=== PATIENT | male | born 1940 | race Hispanic/Latino ===

== ENCOUNTER 2025-08-18 20:45 | Inpatient (IN) | payer OTHER ==
[2025-08-18 21:45] LABS: Absolute Lymphocytes (CBC) 1.0 K/uL (0.7-4.9); Hematocrit 39.1 % (39.6-49.0); Hemoglobin 12.9 g/dL (13.6-17.9); MCH 30.6 pg (27.0-35.0); MCHC 32.9 g/dL (32.0-36.0); MCV 93.1 fL (80-100); MPV 9.5 fL (7.6-11.3); Nucleated RBC Absolute Count 0.0 (0-0); Nucleated Red Blood Cells % 0.1 % (0-0); RBC Red Blood Cell Count 4.20 M/uL (4.33-5.43); White Blood Count 7.10 thou/uL (4.3-10.9)
[2025-08-18 21:54] LABS: PT Prothrombin Time 14.9 SECONDS (10-13.0); Protime INR 1.33
[2025-08-18 22:07] LABS: ALT/SGPT 59.0 U/L (16-61); AST/SGOT 39.0 U/L (15-37); Albumin 3.3 g/dL (3.4-5.0); Albumin/Globulin Ratio 0.8 (1.1-1.8); Alkaline Phosphatase 87.0 U/L (45-117); Anion Gap 8.1 mEq/L (5.0-15.0); BUN Blood Urea Nitrogen 23.0 mg/dL (7-18); Bilirubin Indirect, Calculated 0.7 mg/dL (0.2-0.8); Globulin 4.0 g/dL (2.3-3.5); Glucose Level 108.0 mg/dL (74-106); Magnesium 2.1 mg/dL (1.6-2.4); NT PRO-BNP 14918.0 pg/mL (<450); Potassium 4.1 mEq/L (3.5-5.1)
[2025-08-18 22:09] LABS: White Blood Cell Scan OK (OK)
[2025-08-18 22:25] LABS: Anisocytosis 1+; Blood Morphology Comment NOTED (NOT SEEN); Macrocytosis SLIGHT; Microcytosis SLIGHT; Ovalocytes SLIGHT
[2025-08-18 22:26] LABS: Troponin High Sensitivity 110.9 pg/mL (<58.9)
--- NOTE | 2025-08-18 22:35 | RAD REPORT ---
EXAM: Chest Single View HISTORY: 85 years Male edema COMPARISON: No prior exams FINDINGS: LUNGS/PLEURA: Small bilateral pleural effusions and probable underlying atelectasis. CARDIAC/MEDIASTINUM: Moderate cardiomegaly. UPPER ABDOMEN: No significant abnormality. BONES: No acute abnormality. LINES/TUBES/OTHER: N/A IMPRESSION: Cardiomegaly and small bilateral pleural effusions probably secondary to mild congestive heart failur e/fluid overload.
[2025-08-18] MEDS ORDERED: ASPIRIN 81 MG CHEWABLE TABLET ONE (23:07)
[2025-08-18] MEDS ORDERED: ENOXAPARIN 80 MG/0.8 ML SQ ONE (23:08)
[2025-08-18] MEDS ORDERED: FUROSEMIDE 40 MG/4 ML VIAL ONE (23:08)
--- NOTE | 2025-08-18 23:12 | ER ---
Nurse's Notes [facility] Name: Zaid Parmar Age: 85 yrs Sex: Male : 1940 Arrival Date: 08/18/2025 Time: 20:45 Bed 2 Private MD: Diagnosis: Subsequent non-ST elevation (NSTEMI) myocardial infarction;Unspecified combined systolic (congestive) and diastolic (congestive) heart failure Presentation: 08/18 20:53 Chief complaint: Patient's son or daughter states: PT WAS IN [place] FOR 1.5 MONTHS AND dd2 RETURNED TODAY WITH SOB AND SWELLING TO BOTH FEET. PT'S SON REPORTS THAT THESE SYMPTOMS HAVE BEEN PRESENT PRIOR TO VISIT IN [place] AND WAS SEEN BY PHYSICIAN THERE AND WAS TOLD HE HAD A BLOCKAGE AND NEED SURGERY. PT'S SON BROUGHT HIM HOME DUE TO HIS INSURANCE BEING HERE. Coronavirus screen: At this time, the client does not indicate any symptoms associated with coronavirus-19. Ebola Screen: No symptoms or risks identified at this time. Initial Sepsis Screen: Does the patient meet any 2 criteria? No. Patient's initial sepsis screen is negative. Does the patient have a suspected source of infection? No. Patient's initial sepsis screen is negative. Risk Assessment: Do you want to hurt yourself or someone else? Patient reports no desire to harm self or others. Onset of symptoms is unknown. 20:53 Method Of Arrival: Wheelchair dd2 20:53 Acuity: MADDISON 3 dd2 Triage Assessment: 20:59 General: Appears in no apparent distress. uncomfortable, Behavior is calm, cooperative, dd2 appropriate for age. Pain: Denies pain. Respiratory: Reports shortness of breath at rest on exertion. Musculoskeletal: Swelling present in right foot, left foot, right leg and left leg. Historical: - Allergies: 20:59 No Known Allergies; dd2 - PMHx: 20:59 None; dd2 - PSHx: 20:59 HERNIA REPAIR; dd2 - Immunization history:: Adult Immunizations up to date. - Infectious Disease History:: Denies. - Social history:: Smoking status: Patient/guardian denies using tobacco, but has a distant history of tobacco abuse. Screenin:39 [facility] ED Fall Risk Assessment (Adult) History of falling in the last 3 months, lg3 including since admission No falls in past 3 months (0 pts) Confusion or Disorientation No (0 pts) Intoxicated or Sedated No (0 pts) Impaired Gait No (0 pts) Mobility Assist Device Used No (0 pt) Altered Elimination No (0 pt) Score/Fall Risk Level 0 - 2 = Low Risk Oriented to surroundings, Maintained a safe environment, Educated pt \T\ family on fall prevention, incl call for assistance when getting out of bed, Assessed \T\ reinforced patient's understanding of fall precautions. Abuse screen: Denies threats or abuse. Denies injuries from another. Nutritional screening: No deficits noted. Tuberculosis screening: No symptoms or risk factors identified. Assessment: 21:39 General: Appears in no apparent distress. comfortable, Behavior is calm, cooperative. lg3 Pain: Denies pain. Neuro: No deficits noted. Sherwood Agitation-Sedation Scale (RASS): 0 - Alert and Calm Level of Consciousness is awake, alert, obeys commands, Oriented to person, place, time, situation. Cardiovascular: No deficits noted. Reports shortness of breath, Denies chest pain, Capillary refill < 3 seconds Clubbing of nail beds is absent JVD is absent Patient's skin is warm and dry. Respiratory: No deficits noted. Reports shortness of breath at rest Airway is patent Respiratory effort is even, unlabored, Respiratory pattern is regular, symmetrical. GI: No deficits noted. No signs and/or symptoms were reported involving the gastrointestinal system. Abdomen is round non-distended. : No signs and/or symptoms were reported regarding the genitourinary system. EENT: No deficits noted. No signs and/or symptoms were reported regarding the EENT system. Derm: No deficits noted. No signs and/or symptoms reported regarding the dermatologic system. Skin is intact, is healthy with good turgor, Skin is dry, Skin is normal, Skin temperature is warm. Musculoskeletal: Circulation, motion, and sensation intact. Range of motion: intact in all extremities, Swelling present in right leg and left leg. 23:09 Reassessment: Patient appears in no apparent distress at this time. No changes from lg3 previously documented assessment. Patient and/or family updated on plan of care and expected duration. Pain level reassessed. Patient is alert, oriented x 3, equal unlabored respirations, skin warm/dry/pink. 08/19 00:48 Reassessment: Patient appears in no apparent distress at this time. No changes from lg3 previously documented assessment. Patient and/or family updated on plan of care and expected duration. Pain level reassessed. Patient is alert, oriented x 3, equal unlabored respirations, skin warm/dry/pink. Vital Signs: 08/18 20:53 BP 145 / 76; Pulse 69; Resp 19; Temp 98.2; Pulse Ox 98% on R/A; Pain 0/10; dd2 20:53 Weight 69 kg; dd2 23:09 BP 138 / 67; Pulse 58; Resp 20 S; Pulse Ox 97% on R/A; lg3 08/19 00:47 BP 141 / 72; Pulse 70; Resp 20 S; Pulse Ox 97% on R/A; lg3 08/18 20:53 Pain Scale: Adult dd2 ED Course: 08/18 20:52 Patient arrived in ED. dd2 20:59 Triage completed. dd2 20:59 Kenji Frank [facility]-C [facility]. cp 20:59 Bobby Molina DO is Attending Physician. cp 20:59 Arm band placed on right wrist. dd2 21:39 Leyla Irwin, PARVIZ is Primary Nurse. lg3 21:39 Patient has correct armband on for positive identification. Placed in gown. Bed in low lg3 position. Call light in reach. Side rails up X 1. Client placed on continuous cardiac and pulse oximetry monitoring. NIBP monitoring applied. library monitor on. Door closed. Noise minimized. Warm blanket given. Pillow given. Family accompanied patient. 21:39 Initial lab(s) drawn, by me, sent to lab. EKG done, by ED staff, reviewed by Kenji Frank lgSimone BO. Inserted saline lock: 20 gauge in right antecubital area, using aseptic technique. Blood collected. Flushed with 10 mL NS. 22:29 XRAY Chest (1 view) In Process Unspecified. EDMS 23:10 Devan Argueta MD is Hospitalizing Provider. cp 23:34 CT Chest For PE Angio In Process Unspecified. EDMS 08/19 01:44 No provider procedures requiring assistance completed. ha1 01:46 Provided Education on: admission. ha1 02:34 Patient admitted, IV remains in place. cp4 Administered Medications: 08/18 23:15 Drug: Furosemide IVP 40 mg IVP once; give over 2 minutes Route: IVP; Site: right cp4 antecubital; 08/19 00:50 Follow up: Response: No adverse reaction 3 08/18 23:15 Drug: Aspirin PO Chewable Tablet 324 mg PO once; 81 mg tablets x 4 Route: PO; 4 08/19 00:49 Follow up: Response: No adverse reaction lg3 08/18 23:15 Drug: Enoxaparin Sub-Q 1 mg/kg Sub-Q once Route: Sub-Q; Site: abdomen; 4 08/19 00:49 Follow up: Response: No adverse reaction lg3 Medication: 08/18 21:39 VIS not applicable for this client. lg3 Outcome: 23:11 Decision to Hospitalize by Provider. 08/19 02:33 Admitted to Med/surg accompanied by tech, room 425, with chart, cp4 Condition: stable Instructed on the need for admit, 02:34 Patient left the ED. cp4 Signatures: Dispatcher [employer] EDMS Kenji Frank, PA-C PA-C Leyla Cartwright RN RN lg3 Whitney Olivera RN RN ha1 Kerry Haskins cp4 AZRA MARLEY RN RN dd2
--- NOTE | 2025-08-18 23:12 | EDPHYS ---
Physician Documentation [facility] Name: Zaid Parmar Age: 85 yrs Sex: Male : 1940 Arrival Date: 08/18/2025 Time: 20:45 Bed 2 Private MD: ED Physician Bobby Molina HPI: 08/18 21:10 This 85 yrs old Male presents to ER via Wheelchair with complaints of Leg cp Swelling. 21:10 The patient has shortness of breath at rest. Onset: The symptoms/episode began/occurred cp 1.5 month(s) ago. 21:10 Duration: The symptoms are continuous, and are steadily getting worse. cp 21:10 Associated signs and symptoms: Pertinent negatives: chest pain, diaphoresis, fever, cp vomiting. Severity of symptoms: in the emergency department the symptoms are unchanged despite home interventions. Son reports patient was seen by physician while in [place] and informed he had blocked cardiac arteries. Historical: - Allergies: 20:59 No Known Allergies; dd2 - PMHx: 20:59 None; dd2 - PSHx: 20:59 HERNIA REPAIR; dd2 - Immunization history:: Adult Immunizations up to date. - Infectious Disease History:: Denies. - Social history:: Smoking status: Patient/guardian denies using tobacco, but has a distant history of tobacco abuse. ROS: 21:15 Constitutional: Negative for body aches, chills, fever, poor PO intake, cp 21:15 Eyes: Negative for injury, pain, redness, and discharge, cp 21:15 ENT: Negative for drainage from ear(s), ear pain, sore throat, difficulty swallowing, difficulty handling secretions, 21:15 Cardiovascular: Positive for edema, Negative for chest pain, 21:15 Respiratory: Positive for shortness of breath, on exertion. Negative for cough, wheezing, 21:15 Abdomen/GI: Negative for abdominal pain, vomiting, diarrhea, constipation, black/tarry stool, rectal bleeding, 21:15 Neuro: Negative for altered mental status, headache, syncope, near syncope, weakness, 21:15 All other systems are negative, Exam: 21:15 Head/Face: Normocephalic, atraumatic. cp 21:15 Constitutional: The patient appears in no acute distress, alert, awake, non-toxic, well developed, well nourished, 21:15 Eyes: Periorbital structures: appear normal, Conjunctiva: normal, no exudate, no injection, Sclera: no appreciated abnormality, Lids and lashes: appear normal, bilaterally, 21:15 ENT: External ear(s): are unremarkable, Nose: is normal, Mouth: Lips: moist, Oral mucosa: moist, Posterior pharynx: Airway: no evidence of obstruction, patent, 21:15 Neck: ROM/movement: is normal, is supple, without pain, no range of motions limitations, no nuchal rigidity, 21:15 Chest/axilla: Inspection: normal, Palpation: is normal, no crepitus, no tenderness, 21:15 Cardiovascular: Rate: normal, Rhythm: regular, Edema: ankle edema, that is moderate, JVD: is not appreciated, 21:15 Respiratory: the patient does not display signs of respiratory distress, Respirations: shallow respirations, that is mild, Breath sounds: decreased breath sounds, that are mild, throughout, stridor, is not appreciated, wheezing: is not appreciated, 21:15 Abdomen/GI: Inspection: abdomen appears normal, Palpation: abdomen is soft and non-tender, in all quadrants, 21:15 Back: pain, is absent, 21:15 Skin: cellulitis, is not appreciated, no rash present. 21:15 Neuro: Orientation: to person, place \T\ time. Mentation: is normal, Motor: moves all fours, strength is normal, Sensation: is normal, 08/19 03:28 ECG was reviewed by the Attending Physician. cp Vital Signs: 08/18 20:53 BP 145 / 76; Pulse 69; Resp 19; Temp 98.2; Pulse Ox 98% on R/A; Pain 0/10; dd2 20:53 Weight 69 kg; dd2 23:09 BP 138 / 67; Pulse 58; Resp 20 S; Pulse Ox 97% on R/A; lg3 08/19 00:47 BP 141 / 72; Pulse 70; Resp 20 S; Pulse Ox 97% on R/A; lg3 08/18 20:53 Pain Scale: Adult dd2 MDM: 08/18 21:00 Medical Screening Exam initiated cp 22:00 Differential diagnosis: CHF exacerbation, Chronic Obstructive Pulmonary Disease cp Myocardial Infarction pneumonia, pulmonary edema, Pulmonary Embolism Unstable Angina. 23:15 Data reviewed: vital signs, nurses notes, lab test result(s), EKG, radiologic studies, cp plain films, and as a result, I will admit patient. 23:15 Management of patient was discussed with the following: Electric Repair Supervisor: DR Hernandes, cp cardiology, will consult and patient admitted to service of hospitalist, DR Argueta, after discussion. Counseling: I had a detailed discussion with the patient and/or guardian regarding the historical points, exam findings, and any diagnostic results supporting the discharge/admit diagnosis, the presence of at least one elevated blood pressure reading (>120/80) during this emergency department visit, lab results, radiology results, the need for further work-up and treatment in the hospital. Response to treatment: the patient's symptoms have mildly improved after treatment. 08/18 21:30 Order name: Basic Metabolic Panel; Complete Time: 22:50 08/18 21:30 Order name: CBC with Diff; Complete Time: 22:50 08/18 21:30 Order name: LFT's; Complete Time: 22:50 08/18 21:30 Order name: Magnesium; Complete Time: 22:50 08/18 21:30 Order name: NT PRO-BNP; Complete Time: 22:50 08/18 22:50 Interpretation: Abnormal: NT PRO-BNP [id number]. 08/18 21:30 Order name: PT-INR; Complete Time: 22:50 08/18 21:30 Order name: Troponin HS; Complete Time: 22:50 08/18 21:49 Order name: CBC Smear Scan; Complete Time: 22:50 EDPA 08/19 01:30 Order name: CBC with Automated Diff [facility] 08/19 01:30 Order name: CBC with Automated Diff [facility] 08/19 01:30 Order name: Comprehensive Metabolic Panel [facility] 08/19 01:30 Order name: Comprehensive Metabolic Panel [facility] 08/19 01:30 Order name: Troponin High Sensitivity [facility] 08/19 01:30 Order name: Troponin High Sensitivity [facility] 08/19 01:30 Order name: Troponin High Sensitivity [facility] 08/19 01:30 Order name: Troponin High Sensitivity [facility] 08/18 21:30 Order name: XRAY Chest (1 view); Complete Time: 22:50 08/18 23:01 Interpretation: Report review. 08/18 23:02 Order name: CT Chest For PE Angio 08/18 21:30 Order name: EKG; Complete Time: 21:31 cp 08/18 21:30 Order name: Cardiac monitoring; Complete Time: 21:43 cp 08/18 21:30 Order name: EKG - Nurse/Tech; Complete Time: 21:43 cp 08/18 21:30 Order name: IV Saline Lock; Complete Time: 21:43 cp 08/18 21:30 Order name: Labs collected and sent; Complete Time: 21:44 cp 08/18 21:30 Order name: O2 Per Protocol; Complete Time: :44 cp 08/18 21:30 Order name: O2 Sat Monitoring; Complete Time: :44 cp EC/20 03:28 Rate is 64 beats/min. Rhythm is regular. QRS interval is prolonged at 107 msec. QT cp interval is normal. T waves are Inverted in lead I. Interpreted by me. Reviewed by me. Administered Medications: 08/18 23:15 Drug: Furosemide IVP 40 mg IVP once; give over 2 minutes Route: IVP; Site: right cp4 antecubital; 08/19 00:50 Follow up: Response: No adverse reaction lg3 08/18 23:15 Drug: Aspirin PO Chewable Tablet 324 mg PO once; 81 mg tablets x 4 Route: PO; [facility] 08/19 00:49 Follow up: Response: No adverse reaction lg3 08/18 23:15 Drug: Enoxaparin Sub-Q 1 mg/kg Sub-Q once Route: Sub-Q; Site: abdomen; 4 08/19 00:49 Follow up: Response: No adverse reaction lg3 Disposition: 07:41 Co-signature as Attending Physician, Bobby Molina DO I agree with the assessment and tt7 plan of care. Disposition Summary: 08/18/25 23:11 Hospitalization Ordered Notes: Hospitalization Status: Inpatient Admission cp Provider: Devan Argueta cp Location: Telemetry/MedSur (Inpatient) cp Condition: Stable cp Problem: new cp Symptoms: have improved cp Bed/Room Type: Standard cp Room Assignment: 425(08/19/25 01:31) kl Diagnosis - Subsequent non-ST elevation (NSTEMI) myocardial infarction cp - Unspecified combined systolic (congestive) and diastolic (congestive) heart failure cp Forms: - Medication Reconciliation Form cp - SBAR form cp - Leadership Thank You Letter cp Signatures: Dispatcher [employer] Mary Buck RN RN kl Kenji Frank, PA-C Leyla Huffman cp, RN RN kel3 Kerry Haskins cp4 AZRA MARLEY RN RN dd2 Bobby Molina, DO [place] tt7 Corrections: (The following items were deleted from the chart) 01:31 08/18 23:11 brenton hassan
--- NOTE | 2025-08-19 01:00 | RAD REPORT ---
EXAM: CT Angiography Chest With Intravenous Contrast CLINICAL HISTORY: The patient is 85 years old and is Male; SOB TECHNIQUE: Axial computed tomographic angiography images of the chest with intravenous contrast. Sagittal an d coronal reformatted images were created and reviewed. This CT exam was performed using one or more of the following dose reduction techniques: automated exposure control, adjustment of the mA a nd/or kV according to patient size, and/or use of iterative reconstruction technique. MIP reconstructed images were created and reviewed. COMPARISON: No relevant prior studies available. FINDINGS: PULMONARY ARTERIES: There are no obvious filling defects identified within the pulmonary arteries to suggest pulmonary embolism. AORTA: No acute findings. No thoracic aortic aneurysm. LUNGS AND PLEURAL SPACES: Moderate bilateral pleural effusions are present with associated atelec tasis. No mass. No pneumothorax. HEART: The heart is enlarged. A trace pericardial effusion is present. No evidence of RV dysfun ction. BONES/JOINTS: No acute fracture. No dislocation. SOFT TISSUES: Unremarkable. LYMPH NODES: Unremarkable. No enlarged lymph nodes. IMPRESSION: 1. No evidence of pulmonary embolism. 2. Moderate pleural effusions with bibasilar atelectasis. Electronically signed by: Ifeoma Saravia MD 08/19/2025 12:55 AM CDT Due to temporary technical issues with the [employer] [employer] reporting system, reports are being airam d by the in-house radiologist without review as a courtesy to ensure prompt reporting the interpreting radiologist is fully responsible for the content of the report. Transcribed Date/Time: 08/19/2025 12:59 AM
--- NOTE | 2025-08-19 01:24 | P.HP ---
Certification for Inpatient Patient admitted to: Inpatient With expected LOS: >2 Midnights Practitioner: I am a practitioner with admitting privileges, knowledge of patient current condition, hospital course, and medical plan of care. Services: Services provided to patient in accordance with Admission requirements found in Title 42 Section 412.3 of the Code of Federal Regulations Patient History Date of Service: 08/19/25 Reason for admission: CP/SOB History of Present Illness: 85-year-old male with no significant past medical history was brought to ER with chest discomfort and shortness of breath associated with swelling of both lower extremity which started a month ago and has been progressively getting worse and was brought to ER. Patient is a poor historian hence most of the history is obtained from the chart review and also talking to the ER physician. Denies any chest pain at the time of interview. Patient was in [place] for last 2 months and just returned today. He was been having shortness of breath and bilateral pedal edema and was seen by Dr mcintosh and was told that the patient had a blockage and needs surgery. So he returned to [facility]. No fever or chills. No nausea vomiting or diarrhea. Patient was assessed in the ER was admitted for further management of CHF and chest pain to rule out ACS Allergies No Known Allergies Allergy (Unverified 08/19/25 00:45) Home medications list reviewed: Yes - Past Medical/Surgical History Past Medical History: Reviewed- Non-Contributory Past Surgical History: Reviewed- Non-Contributory - Family History Family History: Reviewed- Non-Contributory - Social History Smoking Status: Never smoker Review of Systems 10-point ROS is otherwise unremarkable Physical Examination - Vital Signs Temperature: 98.2 F Blood Pressure: 146/72 Pulse: 78 Respirations: 18 Pulse Ox (%): 94 - Physical Exam General: Alert, Oriented x3, Mild distress HEENT: Atraumatic, Normocephalic Neck: Supple Respiratory: Clear to auscultation bilaterally, Normal air movement Cardiovascular: Regular rate/rhythm, Normal S1 S2, Edema Capillary refill: <2 Seconds Gastrointestinal: Soft and benign, W/out hepatosplenomegaly Musculoskeletal: No clubbing, Swelling Integumentary: No rashes Neurological: Other (Alert awake nonfocal) Lymphatics: No axilla or inguinal lymphadenopathy - Studies Laboratory Data (last 24 hrs) 08/18/25 08/18/25 08/18/25 21:35 21:35 21:35 WBC 7.10 Hgb 12.9 L Hct 39.1 L Plt Count 234 PT 14.9 H INR 1.33 Sodium 141 Potassium 4.1 BUN 23 H Creatinine 1.27 Glucose 108 H Magnesium 2.1 Total Bilirubin 1.1 H AST 39 H ALT 59 Alkaline Phosphatase 87 Assessment and Plan - Plan Acute on chronic CHF possibly systolic/diastolic Monitor closely on telemetry Started on aggressive diuresis X-ray findings consistent with CHF Oxygen supplementation Will try to wean down oxygen requirement Continue home medications Titrate as needed Will obtain an echocardiogram Cardiology consult NSTEMI Will trend cardiac enzymes Will monitor telemetry Started on aspirin and statin EKG noted Will get an echocardiogram Cardiology consult GI/DVT prophylaxis Advanced directive full code Discharge Plan: Home Plan to discharge in: 48 Hours - Advance Directives Does patient have a Living Will: No Does patient have a Durable POA for Healthcare: No - Code Status/Comfort Care Code Status: Full Code Time Spent Managing Pts Care (In Minutes): 48
[2025-08-19] MEDS ORDERED: ONDANSETRON 4 MG/2 ML VIAL IV PRN (01:25)
[2025-08-19] MEDS ORDERED: ACETAMINOPHEN 325 MG TABLET PO PRN (01:25)
[2025-08-19] MEDS: FUROSEMIDE 40 MG/4 ML VIAL IV SCH (03:48)
[2025-08-19 04:15] VITALS: BMI 24.7
[2025-08-19] MEDS: ASPIRIN EC 81 MG TAB PO SCH (08:40)
[2025-08-19] MEDS: HEPARIN 5000 UNIT/ML 1 ML VIAL SQ SCH (08:40)
[2025-08-19 08:53] LABS: Absolute Lymphocytes (CBC) 0.8 K/uL (0.7-4.9); Hematocrit 38.8 % (39.6-49.0); Hemoglobin 12.5 g/dL (13.6-17.9); MCH 29.6 pg (27.0-35.0); MCHC 32.2 g/dL (32.0-36.0); MCV 92.1 fL (80-100); MPV 9.3 fL (7.6-11.3); Nucleated RBC Absolute Count 0.0 (0-0); Nucleated Red Blood Cells % 0.1 % (0-0); RBC Red Blood Cell Count 4.21 M/uL (4.33-5.43); White Blood Count 7.30 thou/uL (4.3-10.9)
[2025-08-19 09:16] LABS: ALT/SGPT 48.0 U/L (16-61); Albumin 3.3 g/dL (3.4-5.0); Albumin/Globulin Ratio 0.9 (1.1-1.8); Alkaline Phosphatase 70.0 U/L (45-117); Anion Gap 7.8 mEq/L (5.0-15.0); BUN Blood Urea Nitrogen 21.0 mg/dL (7-18); Globulin 3.6 g/dL (2.3-3.5); Glucose Level 99.0 mg/dL (74-106)
[2025-08-19 09:18] LABS: AST/SGOT 36.0 U/L (15-37); Potassium 3.8 mEq/L (3.5-5.1)
[2025-08-19 09:19] LABS: Troponin High Sensitivity 105.3 pg/mL (<58.9)
[2025-08-19] MEDS: POTASSIUM CL SA 10 MEQ TAB PO ONE (11:44)
[2025-08-19] MEDS: ATORVASTATIN 40 MG TAB PO SCH (20:24)
--- NOTE | 2025-08-19 20:47 | P.PN ---
Date of Service: 08/19/25 Subjective Patient is clinically doing well and patient denies any complaints. Still having dysarthria and dysphagia. Imaging studies pending. CT head pending. Cardiology consulted for elevated troponin as well. Physical Examination - Vital Signs reviewed - Physical Exam General: Alert, Oriented x3, Mild distress Respiratory: Bilateral basilar crackles Cardiovascular: Regular rate/rhythm, Normal S1 S2, Edema Gastrointestinal: Soft and benign, W/out hepatosplenomegaly Musculoskeletal: No clubbing, Swelling Neurological: Other (Alert awake nonfocal) Assessment and Plan - Assessment/Plan 1. Acute on chronic CHF possibly systolic/diastolic; Continue with aggressive diuresing monitor O2 sats carefully. Patient with bilateral pleural effusion. Monitor BNP levels. Echocardiogram pending. 2. Type II HI; monitor serial troponins. Will monitor telemetry. Continue aspirin and statin. Awaiting echocardiogram. Cardiology consulted 3. Dysarthria; patient states his speech is different than used to be. His signing bedroom and he corroborates that patient is speaking much differently. Patient is having dysphagia as well. Will go ahead and get CT imaging to evaluate laryngeal nerve injury. 4. Acute on chronic kidney disease; continue monitoring renal function closely. Renal ultrasound pending. 5. Gi and DVT prophylaxis GI/DVT prophylaxis Advanced directive full code Discharge Plan: Home Plan to discharge in: 48 Hours - Advance Directives Does patient have a Living Will: No Does patient have a Durable POA for Healthcare: No - Code Status/Comfort Care Code Status: Full Code Time Spent Managing Pts Care (In Minutes): 30
[2025-08-19] MEDS ORDERED: DICLOFENAC SUBMICRONIZED 35 MG PO PRN (20:51)
[2025-08-19] MEDS ORDERED: PENTOXIFYLLINE ER 400 MG TAB PO PRN (20:51)
[2025-08-20 06:03] LABS: Absolute Lymphocytes (CBC) 1.0 K/uL (0.7-4.9); Hematocrit 38.6 % (39.6-49.0); Hemoglobin 12.7 g/dL (13.6-17.9); MCH 30.2 pg (27.0-35.0); MCHC 33.0 g/dL (32.0-36.0); MCV 91.6 fL (80-100); MPV 9.4 fL (7.6-11.3); Nucleated RBC Absolute Count 0.0 (0-0); Nucleated Red Blood Cells % 0.0 % (0-0); RBC Red Blood Cell Count 4.22 M/uL (4.33-5.43); White Blood Count 6.90 thou/uL (4.3-10.9)
[2025-08-20 06:24] LABS: ALT/SGPT 42.0 U/L (16-61); AST/SGOT 25.0 U/L (15-37); Albumin 2.9 g/dL (3.4-5.0); Albumin/Globulin Ratio 0.8 (1.1-1.8); Alkaline Phosphatase 73.0 U/L (45-117); Anion Gap 6.8 mEq/L (5.0-15.0); BUN Blood Urea Nitrogen 27.0 mg/dL (7-18); Globulin 3.7 g/dL (2.3-3.5); Glucose Level 90.0 mg/dL (74-106); Potassium 3.8 mEq/L (3.5-5.1)
[2025-08-20 07:04] LABS: NT PRO-BNP 10842.0 pg/mL (<450); Thyroid Stimulating Hormone 3.08 uIU/mL (0.358-3.740)
[2025-08-20 07:06] LABS: Troponin High Sensitivity 122.4 pg/mL (<58.9)
--- NOTE | 2025-08-20 08:01 | RAD REPORT ---
EXAMINATION: Head Brain Wo Cont CLINICAL INDICATION: Male, 85 years old.Dysphagia; aphasia TECHNIQUE: Axial CT images from the skull base to the vertex without intravenous contrast. Coronal an d sagittal reformatted images were created from the data set. One or more of the following dose reduction techniques were used: Automated exposure control, adjustment of the mA and/or kV according to patient size, and/or iterative reconstruction. Unless otherwise specified, incidental findings do not require dedicated imaging follow-up. [id number]. COMPARISON: No prior exams FINDINGS: INTRACRANIAL: No acute intracranial hemorrhage. No acute large vascular territory infarct. No hydroce phalus. No mass effect or midline shift. Mild to moderate chronic small vessel ischemic changes.Moderate cerebral atrophy. VASCULATURE: No visualized abnormalities in the arteries or dural venous sinuses. SCALP/SKULL: No calvarial fracture identified. No acute soft tissue abnormality. SINUSES: The visualized paranasal sinuses are mostly clear. No significant mastoid fluid. IMPRESSION: No acute intracranial abnormality.
--- NOTE | 2025-08-20 08:04 | RAD REPORT ---
EXAM: Soft Tissue Neck W/Contr INDICATION: Dysphagia; aphasia TECHNIQUE: Helical CT examination of the neck with IV contrast. Sagittal and coronal reformations wer e generated. This exam was performed according to our departmental dose-optimization program, which includes automated exposure control, adjustment of the mA and/or kV according to patient size and/or use of iterative reconstruction technique. COMPARISON: No prior exams FINDINGS: Aerodigestive Tract Structures: Large anterior osteophytes at C2-3 and C3-4 resulting in some mass ef fect on the hypopharynx. No mass identified. Lymph Nodes: No pathologic appearing cervical lymph nodes. Parotid Glands: Normal Submandibular Glands: Normal Thyroid Gland: Normal Included Intracranial Structures: Normal Included Orbits: Normal Paranasal Sinuses: Predominantly clear Tympanomastoid Cavities: Normal Vascular Structures: Normal Osseous Structures: No acute osseous abnormality. Included Lung Apices: Partially imaged right pleural effusion. IMPRESSION: No specific CT findings to explain dysphagia. Large anterior osteophytes at C2-3 and C3-4 resulting i n some mild mass effect on the hypopharynx though this should not explain an acute change. No mass identified.
[2025-08-20] MEDS: FUROSEMIDE 40 MG/4 ML VIAL IV SCH (10:22)
[2025-08-20] MEDS: LOSARTAN POTASSIUM 50 MG TABLET PO SCH (10:22)
[2025-08-20] MEDS: POTASSIUM 25 MEQ EFFERV TAB PO ONE (10:23)
--- NOTE | 2025-08-20 12:12 | P.CNS ---
Date of Consult: 08/20/25 Chief Complaint: CP/SOB History of Present Illness: Patient with PMH of CAD, HTN, presented with worsening BLE and chest pain, denies palpitation, no syncope. Allergies No Known Allergies Allergy (Unverified 08/19/25 00:45) Home medications list reviewed: Yes Home Medications: Diclofenac Submicronized [Diclofenac] 100 mg PO Q8HR PRN 08/19/25 Losartan Potassium 50 mg PO DAILY 08/19/25 Naproxen 500 mg PO Q6H PRN 08/19/25 Pentoxifylline 400 mg PO Q8HR PRN 08/19/25 - Social History Smoking Status: Former smoker Place of Residence: Home Review of Systems 10-point ROS is otherwise unremarkable Physical Examination Temp Pulse Resp BP Pulse Ox 96.5 F L 65 15 129/57 L 98 08/20/25 07:59 08/20/25 10:22 08/20/25 07:59 08/20/25 10:22 08/20/25 07:59 General: Alert, In no apparent distress HEENT: Atraumatic, PERRLA, Mucous membr. moist/pink, EOMI, Sclerae nonicteric Neck: Supple, 2+ carotid pulse no bruit, No LAD, Without JVD or thyroid abnormality Respiratory: Clear to auscultation bilaterally, Normal air movement Cardiovascular: Regular rate/rhythm, Normal S1 S2 Gastrointestinal: Normal bowel sounds, No tenderness Musculoskeletal: No tenderness Integumentary: No rashes Neurological: Normal gait, Normal speech, Normal tone, Normal affect Lymphatics: No axilla or inguinal lymphadenopathy - Problems (1) NSTEMI (non-ST elevated myocardial infarction) Current Visit: Yes Status: Acute Plan: NPO after midnight for coronary angiogram in am continue ASA 81 mg daily continue lipitor get echo (2) Heart failure Current Visit: Yes Status: Acute Plan: unknown EF Continue lasix 40 mg IV BID Continue losartan get echo continue to monitor input and output and electrolytes.
--- NOTE | 2025-08-20 16:47 | RAD REPORT ---
EXAMINATION: US RETROPERITONEUM CLINICAL INDICATION: AIDA TECHNIQUE: Real-time ultrasonography of the abdomen was performed. COMPARISON: No prior exams FINDINGS: RIGHT KIDNEY: Right renal length measurement: 9.6 cm. Echogenicity is normal. No calculus or solid m ass. No hydronephrosis. . Benign right renal sinus cyst. LEFT KIDNEY: Left renal length measurement: 11.4 cm. Echogenicity is normal. 8mm minimally complex located cyst at the lower pole left kidney is benign. Several small simple left renal cysts identified. No hydronephrosis. . ADDITIONAL FINDINGS: Prostatomegaly. Bladder is underdistended but unremarkable. IMPRESSION: Benign bilateral renal cysts. No evidence of hydronephrosis.
[2025-08-21] MEDS ORDERED: HEPARIN 10,000 UNIT/10 ML VIAL IV ONE (08:01)
[2025-08-21] MEDS ORDERED: LIDOCAINE 1% 20 ML MDV ONE (08:01)
[2025-08-21] MEDS ORDERED: HEPA 1000U/500MLS 2,000 UNIT/1,000 ML BAG IV ONE (08:01)
[2025-08-21] MEDS ORDERED: HEPARIN 5000 UNIT/ML 1 ML VIAL ONE (08:01)
[2025-08-21] MEDS: FENTANYL CITR 100 MCG/2 ML ONE (08:16)
[2025-08-21] MEDS: NA CHLORIDE 0.9% 500 ML ONE (08:17)
[2025-08-21] MEDS: MIDAZOLAM HCL 2 MG/2 ML INJ ONE (08:17)
[2025-08-21] MEDS ORDERED: Phenylephrine HCl 10 MG/ML 1 ML VIAL ONE (08:58)
--- NOTE | 2025-08-21 09:29 | P.PN ---
Subjective Date of Service: 08/21/25 Chief Complaint: CP/SOB Subjective: No new changes, No C/O voiced, Tolerating diet, Ambulating, Improving Review of Systems 10-point ROS is otherwise unremarkable Physical Examination - Vital Signs Temperature: 98.1 F Blood Pressure: 99/54 Pulse: 67 Respirations: 12 Pulse Ox (%): 95 - Physical Exam General: Alert, In no apparent distress HEENT: Atraumatic, PERRLA, EOMI Neck: Supple, JVD not distended Respiratory: Clear to auscultation bilaterally, Normal air movement Cardiovascular: Regular rate/rhythm, Normal S1 S2 Gastrointestinal: Normal bowel sounds, No tenderness Musculoskeletal: No tenderness Integumentary: No rashes Neurological: Normal speech, Normal tone, Normal affect Lymphatics: No axilla or inguinal lymphadenopathy - Studies Medications List Reviewed: Yes Assessment And Plan - Current Problems (Diagnosis) (1) NSTEMI (non-ST elevated myocardial infarction) Current Visit: Yes Status: Acute Plan: Coronary angiogram done with mild CAD continue ASA 81 mg daily continue lipitor get echo (2) Heart failure Current Visit: Yes Status: Acute Plan: unknown EF switch to lasix 40 mg po daily. Continue losartan get echo continue to monitor input and output and electrolytes.
--- NOTE | 2025-08-21 11:50 | OP ---
Date of Procedure: 08/21/2025 Surgeon: Pradeep Hernandes Procedure Performed: Selective coronary angiogram. Indication For Procedure: [id number]. Complications: None. Estimated Blood Loss: Less than 50 cc. Access: Right radial, closed by TR band. Sedation Time: 20 minutes with 1 of Versed and 25 of fentanyl. Description Of Procedure: After risks, and benefits, and alternatives were explained to the patient, patient agreed to proceed with procedure and signed informed consent. The patient was brought back to the agriculture laborer, prepped and draped in sterile fashion. Time-out was performed. Sedation was admini stered. Next, right radial access was obtained using ultrasound-guided micropuncture technique. Tig er 4.0 catheter was advanced over a J-wire to the aortic root. Selective angiogram was done using e same catheter. After that, catheter was removed over a J-wire. Sheath was removed. TR band was a pplied. Hemostasis was achieved. The patient was removed back to recovery in stable condition. Findings: 1. Left main normal. 2. LAD; large, ectatic, with mild luminal irregularities. 3. Left circ; large with mild luminal irregularities, gives large OM1 with mild luminal irregularitie s and OM2 with mild luminal irregularities, then continued as the left PDA. 4. RCA; codominant with mid 30% disease, then mild luminal irregularities. Assessment And Plan: Mild nonobstructive coronary artery disease. Plan is to continue medical management. RHINA/PASHA Voice ID: [id number] Report ID: [id number]
--- NOTE | 2025-08-21 12:24 | P.PN ---
Date of Service: 08/21/25 Subjective: Cardiac cath today. Denies fevers and chills. Soft blood pressures overnight Physical Examination - Vital Signs reviewed - Physical Exam General: Alert, Oriented x3, Mild distress Respiratory: Bilateral basilar crackles Cardiovascular: Regular rate/rhythm, Normal S1 S2, Edema Gastrointestinal: Soft and benign, W/out hepatosplenomegaly Musculoskeletal: No clubbing, Swelling Neurological: Other (Alert awake nonfocal) Assessment and Plan 08/21 - Cardiac cath today with mild CAD, continue aspirin and statin - Continue Lasix IV twice daily. Monitor daily weights, fluid and sodium restriction - Creatinine stable - Continue losartan 1. Acute on chronic CHF possibly systolic/diastolic; Continue with aggressive diuresing monitor O2 sats carefully. Patient with bilateral pleural effusion. Monitor BNP levels. Echocardiogram pending. 2. Type II NH; monitor serial troponins. Will monitor telemetry. Continue aspirin and statin. Awaiting echocardiogram. Cardiology consulted 3. Dysarthria; patient states his speech is different than used to be. His signing bedroom and he corroborates that patient is speaking much differently. Patient is having dysphagia as well. Will go ahead and get CT imaging to evaluate laryngeal nerve injury. 4. Acute on chronic kidney disease; continue monitoring renal function closely. Renal ultrasound pending. 5. Gi and DVT prophylaxis GI/DVT prophylaxis Advanced directive full code Discharge Plan: Home Plan to discharge in: 48 Hours - Advance Directives Does patient have a Living Will: No Does patient have a Durable POA for Healthcare: No - Code Status/Comfort Care Code Status: Full Code
[2025-08-21] MEDS: POTASSIUM CL SA 10 MEQ TAB PO ONE (15:17)
[2025-08-21] MEDS ORDERED: ALBUTEROL INHALER 200 PUFF/6.7 GM IH PRN (15:21)
[2025-08-21] MEDS: CHLORASEPTIC LOZENGES PO PRN (16:36)
[2025-08-21] MEDS: hydrOXYzine HCL 25 MG TAB PO PRN (16:36)
[2025-08-21] MEDS: HEPARIN 5000 UNIT/ML 1 ML VIAL SQ SCH (16:41)
[2025-08-21] MEDS: FUROSEMIDE 40 MG/4 ML VIAL IV SCH (16:47)
[2025-08-21 22:43] VITALS: O2SAT 97
[2025-08-22 07:36] LABS: Absolute Lymphocytes (CBC) 1.1 K/uL (0.7-4.9); Hematocrit 37.3 % (39.6-49.0); Hemoglobin 12.2 g/dL (13.6-17.9); MCH 30.0 pg (27.0-35.0); MCHC 32.8 g/dL (32.0-36.0); MCV 91.6 fL (80-100); MPV 9.2 fL (7.6-11.3); Nucleated RBC Absolute Count 0.0 (0-0); Nucleated Red Blood Cells % 0.1 % (0-0); RBC Red Blood Cell Count 4.07 M/uL (4.33-5.43); White Blood Count 5.50 thou/uL (4.3-10.9)
[2025-08-22 07:49] LABS: ALT/SGPT 36.0 U/L (16-61); AST/SGOT 35.0 U/L (15-37); Albumin 2.9 g/dL (3.4-5.0); Albumin/Globulin Ratio 0.8 (1.1-1.8); Alkaline Phosphatase 66.0 U/L (45-117); Anion Gap 7.6 mEq/L (5.0-15.0); BUN Blood Urea Nitrogen 23.0 mg/dL (7-18); Globulin 3.6 g/dL (2.3-3.5); Glucose Level 88.0 mg/dL (74-106); Potassium 4.6 mEq/L (3.5-5.1)
--- NOTE | 2025-08-22 11:07 | P.PN ---
Subjective Date of Service: 08/22/25 Chief Complaint: CP/SOB Subjective: No new changes, No C/O voiced, Tolerating diet, Ambulating, Improving Review of Systems 10-point ROS is otherwise unremarkable Physical Examination - Vital Signs Temperature: 98.1 F Blood Pressure: 111/59 Pulse: 63 Respirations: 16 Pulse Ox (%): 99 - Physical Exam General: Alert, In no apparent distress HEENT: Atraumatic, PERRLA, EOMI Neck: Supple, JVD not distended Respiratory: Clear to auscultation bilaterally, Normal air movement Cardiovascular: Regular rate/rhythm, Normal S1 S2 Gastrointestinal: Normal bowel sounds, No tenderness Musculoskeletal: No tenderness Integumentary: No rashes Neurological: Normal speech, Normal tone, Normal affect Lymphatics: No axilla or inguinal lymphadenopathy - Studies Medications List Reviewed: Yes Assessment And Plan - Current Problems (Diagnosis) (1) NSTEMI (non-ST elevated myocardial infarction) Current Visit: Yes Status: Acute Plan: Coronary angiogram done with mild CAD continue ASA 81 mg daily continue lipitor Echo shown low normal EF, mild global hypokinesis. (2) Heart failure Current Visit: Yes Status: Acute Plan: EF 40-45%, Mild global hypokinesis switch to lasix 40 mg po daily. Lower Losartan to 25 mg daily add Coreg 3.125 mg po BID Patient can go home and follow up with cardiology (3) Aortic stenosis Current Visit: Yes Status: Acute Plan: Patient echo shows severe calcified aortic valve with severe stenosis valve area 0.7 cm2. Patient coronary angiogram shown mild CAD Patient will need to follow up with cardiology in clinic as outpatient to arrange for possible MARLENY vs. aortic valve replacement.
--- NOTE | 2025-08-22 11:57 | P.DS ---
Admission Date: 08/19/25 Discharge Date: 08/22/25 Disposition: ROUTINE DISCHARGE Discharge Condition: GOOD Reason for Admission: CP/SOB Brief History of Present Illness: 85-year-old male with no significant past medical history was brought to ER with chest discomfort and shortness of breath associated with swelling of both lower extremity which started a month ago and has been progressively getting worse and was brought to ER. Patient is a poor historian hence most of the history is obtained from the chart review and also talking to the ER physician. Denies any chest pain at the time of interview. Patient was in [place] for last 2 months and just returned today. He was been having shortness of breath and bilateral pedal edema and was seen by Dr mcintosh and was told that the patient had a blockage and needs surgery. So he returned to [facility]. No fever or chills. No nausea vomiting or diarrhea. Patient was assessed in the ER was admitted for further management of CHF and chest pain to rule out ACS. Upon admission cardio logy was consulted. Coronary angiogram revealed mild CAD. Echocardiogram revealed EF of 40 to 45%. In addition severe calcified aortic valve with severe stenosis valve. Patient will follow-up with cardiology for possible MARLENY versus aortic valve replacement. He will be discharged home with Lasix, and has been counseled on salt restriction, as well as fluid restriction. Moreover patient described hoarseness of the voice. CT scan of the neck showed large anterior osteophytes at C2-3 and C3 and 4 with some mild mass effect in the hypopharynx. No other acute abnormalities were noted. Patient with follow-up with his cardiology and he is medically optimized for discharge Hospital Course: Physical Examination - Vital Signs reviewed - Physical Exam General: Alert, Oriented x3, Mild distress Respiratory: Bilateral basilar crackles Cardiovascular: Regular rate/rhythm, Normal S1 S2, Edema Gastrointestinal: Soft and benign, W/out hepatosplenomegaly Musculoskeletal: No clubbing, Swelling Neurological: Other (Alert awake nonfocal) Assessment and Plan 08/22 - Echo shows severe calcified aortic valve with severe stenosis valve area 0.7 cm, mild global hypokinesis - Follow-up in cardiology clinic for possible MARLENY versus aortic valve replacement - Home with Lasix, aspirin, statin, Coreg, losartan - Troponin elevation likely secondary to ablation - Coronary angiogram with mild CAD 08/21 - Cardiac cath today with mild CAD, continue aspirin and statin - Continue Lasix IV twice daily. Monitor daily weights, fluid and sodium restriction - Creatinine stable - Continue losartan 1. Acute on chronic CHF possibly systolic/diastolic; Continue with aggressive diuresing monitor O2 sats carefully. Patient with bilateral pleural effusion. Monitor BNP levels. Echocardiogram pending. 2. Type II OR; monitor serial troponins. Will monitor telemetry. Continue aspirin and statin. Awaiting echocardiogram. Cardiology consulted 3. Dysarthria; patient states his speech is different than used to be. His signing bedroom and he corroborates that patient is speaking much differently. Patient is having dysphagia as well. Will go ahead and get CT imaging to evaluate laryngeal nerve injury. 4. Acute on chronic kidney disease; continue monitoring renal function closely. Renal ultrasound pending. 5. Gi and DVT prophylaxis GI/DVT prophylaxis Advanced directive full code Discharge Plan: Home Plan to discharge in: 48 Hours - Advance Directives Does patient have a Living Will: No Does patient have a Durable POA for Healthcare: No - Code Status/Comfort Care Code Status: Full Code Vital Signs/Physical Exam: Temp Pulse Resp BP Pulse Ox 98.1 F 63 16 111/59 L 99 08/22/25 11:07 08/22/25 11:07 08/22/25 11:07 08/22/25 11:07 08/22/25 11:07 Laboratory Data at Discharge: WBC 5.50 thou/uL (4.3-10.9) 08/22/25 06:42 Hgb 12.2 g/dL (13.6-17.9) L 08/22/25 06:42 Hct 37.3 % (39.6-49.0) L 08/22/25 06:42 Plt Count 237 thou/uL (152-406) 08/22/25 06:42 PT 14.9 SECONDS (10-13.0) H 08/18/25 21:35 INR 1.33 08/18/25 21:35 Sodium 139 mEq/L (136-145) 08/22/25 06:42 Potassium 4.6 mEq/L (3.5-5.1) 08/22/25 06:42 Potassium 4.6 mEq/L (3.5-5.1) D 08/22/25 06:42 BUN 23 mg/dL (7-18) H 08/22/25 06:42 Creatinine 1.21 mg/dL (0.70-1.30) 08/22/25 06:42 Glucose 88 mg/dL (74-106) 08/22/25 06:42 Magnesium 2.1 mg/dL (1.6-2.4) 08/18/25 21:35 Total Bilirubin 0.8 mg/dL (0.2-1.0) 08/22/25 06:42 AST 35 U/L (15-37) 08/22/25 06:42 ALT 36 U/L (16-61) 08/22/25 06:42 Alkaline Phosphatase 66 U/L (45-117) 08/22/25 06:42 Home Medications: Diclofenac Submicronized [Diclofenac] 100 mg PO Q8HR PRN 08/19/25 Naproxen 500 mg PO Q6H PRN 08/19/25 Pentoxifylline 400 mg PO Q8HR PRN 08/19/25 Aspirin Chewable [Aspirin Chewable*] 81 mg PO DAILY 30 Days #30 tab.chew 08/22/25 Atorvastatin Calcium [Lipitor] 40 mg PO BEDTIME 30 Days #30 tab 08/22/25 Furosemide [Lasix] 40 mg PO DAILY 30 Days #30 tab 08/22/25 Losartan Potassium 25 mg PO DAILY 30 Days #30 tab 08/22/25 carvediloL [Coreg] 3.125 mg PO BID 30 Days #60 tab 08/22/25 New Medications: Aspirin Chewable [Aspirin Chewable*] 81 mg PO DAILY 30 Days #30 tab.chew carvediloL [Coreg] 3.125 mg PO BID 30 Days #60 tab Furosemide [Lasix] 40 mg PO DAILY 30 Days #30 tab Atorvastatin Calcium [Lipitor] 40 mg PO BEDTIME 30 Days #30 tab Losartan Potassium 25 mg PO DAILY 30 Days #30 tab Followup: Pradeep Hernandes MD [ACTIVE - CAN ADMIT] - 1-2 Weeks DARIEN WOOD [Primary Care Provider] - 1-2 Weeks
[2025-08-22 12:29] VITALS: BP 92/51; TEMP 97.8
== END 2025-08-22 12:52 | disposition home or self-care (01) | DRG 280 ==
LOC: ER 20:45 → ERHOLD 08-19 01:25 → 4TH 08-19 01:49
PROVIDERS: ADMIT Family Medicine; ATTEND Family Medicine
PROC: 4A023N7 Measurement of Cardiac Sampling and Pressure, Left Heart, Percutaneous Approach (ICD-10-PCS; principal; 2025-08-21)
PROC: B2111ZZ Fluoroscopy of Multiple Coronary Arteries using Low Osmolar Contrast (ICD-10-PCS; 2025-08-21)
DX: I13.0 Hypertensive heart and chronic kidney disease with heart failure and stage 1 through stage 4 chronic kidney disease, or unspecified chronic kidney disease (principal); I50.43 Acute on chronic combined systolic (congestive) and diastolic (congestive) heart failure; I21.A1 Myocardial infarction type 2; N18.9 Chronic kidney disease, unspecified; I35.0 Nonrheumatic aortic (valve) stenosis; I25.10 Atherosclerotic heart disease of native coronary artery without angina pectoris; Z79.82 Long term (current) use of aspirin; Z79.02 Long term (current) use of antithrombotics/antiplatelets; Z87.891 Personal history of nicotine dependence; Z79.899 Other long term (current) drug therapy
CPT/HCPCS: 36415; 70450; 70491; 71045; 71275; 76770; 76937; 80048; 80053; 80076; 82607; 83735; 83880; 84132; 84439; 84443; 84484; 85025; 85610; 93306; 93454; 96372; 96374; 99152; 99285; C1893; J1644; J1650; J1938; J2003; J2250; J2371; J3010; J7040; Q9966; Q9967